=== PATIENT | female | born 1960 | race African-American/Black ===

== ENCOUNTER → 2019-05-31 08:53 | Outpatient (CLI) | payer BC, SELFPAY ==
--- NOTE | ~2019-05-31 | MM_ITS ---
EXAMINATION: MM screening [facility] BI w silva HISTORY: Screening mammogram TECHNIQUE: Craniocaudal and mediolateral oblique 3-D tomosynthesis images were obtained and synthetic 2-D images were generated. CAD analysis was submitted and interpreted. COMPARISON: 08/08/2016, 02/20/2012, 02/13/2011 BREAST PARENCHYMAL COMPOSITION: The breasts are heterogeneously dense, which may obscure small masses . FINDINGS: There is no evidence of suspicious mass, calcification, or architectural distortion to sugg est malignancy in either breast. There has been no suspicious interval change. IMPRESSION: 1. No mammographic evidence of malignancy. 2. Recommend routine screening mammography in one year. BI-RADS Category 1: Negative Reviewed, dictated and finalized at location A.
== END ==
PROVIDERS: PCP Emergency Medicine; Visit Provider Emergency Medicine
DX: Z12.31 Encounter for screening mammogram for malignant neoplasm of breast (principal)
CPT/HCPCS: 77063; 77067

== ENCOUNTER → 2021-04-16 11:30 | Outpatient (CLI) | payer BC, SELFPAY ==
--- NOTE | ~2021-04-16 | MM_ITS ---
EXAMINATION: MM screening [facility] BI w sil[facility] HISTORY: Screening TECHNIQUE: Craniocaudal and mediolateral oblique 3-D tomosynthesis images were obtained and synthetic 2-D images were generated. CAD analysis was submitted and interpreted. COMPARISON: Comparison to multiple prior studies sequentially, with oldest reviewed study dated 02/01. BREAST PARENCHYMAL COMPOSITION: There are scattered areas of fibroglandular density. FINDINGS: There is no evidence of suspicious mass, calcification, or architectural distortion to sugg est malignancy in either breast. There has been no suspicious interval change. IMPRESSION: 1. No mammographic evidence of malignancy. 2. Recommend routine screening mammography in one year. BI-RADS Category 1: Negative Reviewed, dictated and finalized at location A. REPAIRER
== END ==
PROVIDERS: PCP Emergency Medicine; Visit Provider Emergency Medicine
DX: Z12.31 Encounter for screening mammogram for malignant neoplasm of breast (principal)
CPT/HCPCS: 77063; 77067

== ENCOUNTER 2022-10-21 12:01 | Outpatient (CLI) | payer OTHER, SELFPAY ==
--- NOTE | ~2022-10-21 | CT_ITS ---
EXAMINATION: CT thoracic lumbar wo con DATE: 10/21/2022 13:00 INDICATION: Back pain after fall on head at work TECHNIQUE: Computed tomography (CT) of the thoracic and lumbar spine was performed without intravenou s contrast. The dose-length product was 1856.63 mGy-cm. Automated exposure control and iterative amy nstruction technique were employed. COMPARISON: None FINDINGS: Mild thoracic and lumbar spondylosis. Vertebral body heights are maintained. No acute fract ure or traumatic malalignment. Lung parenchyma is unremarkable. There is evidence for chronic granulo matous disease of the thorax. There is an enlarged right thyroid gland containing multiple ill-define d nodules. Consider correlation with thyroid ultrasound. No significant paraspinal soft tissue abnorm ality. There is mild multilevel facet hypertrophy. Normal lumbar lordosis. No significant disc narrow ing of the lumbar spine. No evidence for spondylolisthesis. There is mild annular disc bulging at L4- 5 without significant central canal or neural foraminal stenosis. IMPRESSION: 1. No acute abnormality of the thoracic or lumbar spine. Reviewed, dictated and finalized at location B.
--- NOTE | ~2022-10-21 | CT_ITS ---
EXAMINATION: CT brain wo con INDICATION: Head injury COMPARISON: None TECHNIQUE: Standard unenhanced head CT. The dose-length product (DLP) was 605.33 mGy-cm. The mA was a djusted according to patient size. Iterative reconstruction technique was employed. FINDINGS: No intracranial hemorrhage, acute infarction, or abnormal mass lesion. The ventricles are n ormal. No abnormal mass effect or midline shift. The ames-white matter differentiation is normal. The basal cisterns are patent. The orbits are normal. There is mild mucosal thickening of the paranasal sinuses. IMPRESSION: 1. No acute intracranial abnormality. Reviewed, dictated and finalized at location A.
--- NOTE | ~2022-10-21 | CT_ITS ---
EXAMINATION: CT cervical spine wo con DATE: 10/21/2022 13:00 INDICATION: Head injury TECHNIQUE: Computed tomography (CT) of the cervical spine was performed without intravenous contrast. The dose-length product (DLP) was 516.36 mGy-cm. Automated exposure control and iterative reconstruc tion technique were employed. COMPARISON: None FINDINGS: There is reversal of the normal cervical lordosis. There are 2 mm of anterolisthesis of C3 on C4. The vertebral body heights are maintained. There is moderate loss of intervertebral disc space height at C5-6 and C6-7. There is multilevel severe facet joint osteoarthritis. There is fibrous uni on of the posterior C1 ring. There is nodular enlargement of the right thyroid lobe. IMPRESSION: 1. Moderate cervical spondylosis without acute findings. 2. Right thyroid nodules. Follow-up with nonemergent thyroid ultrasound is recommended for risk strat ification. Reviewed, dictated and finalized at location A. IMPRESSION: 1. Moderate cervical spondylosis without acute findings. 2. Right thyroid nodules. Follow-up with nonemergent thyroid ultrasound is amy mmended for risk stratification.
== END 2022-10-21 12:02 | disposition home or self-care (01) ==
LOC: ANHIMG 12:10
PROVIDERS: PCP Emergency Medicine; Visit Provider Emergency Medicine
DX: S09.90XA Unspecified injury of head, initial encounter (principal); X58.XXXA Exposure to other specified factors, initial encounter; M47.892 Other spondylosis, cervical region; E04.2 Nontoxic multinodular goiter
CPT/HCPCS: 70450; 72125; 72128; 72131

== ENCOUNTER 2022-12-09 08:54 | Outpatient (CLI) | payer OTHER, SELFPAY ==
--- NOTE | ~2022-12-09 | US_ITS ---
EXAMINATION: US thyroid DATE: 12/09/2022 09:26 INDICATION: Nontoxic single thyroid nodule TECHNIQUE: Multiple ultrasound images of the thyroid were obtained. COMPARISON: None. FINDINGS: The right thyroid lobe measures 6.3 x 2.9 x 2.7 cm. The left thyroid lobe measures 4.9 x 1.6 x 1.8 c m. 3.7 x 2.8 x 2.8 cm wider than tall heterogeneous solid isoechoic nodule with smooth to ill-define d margins and without echogenic foci in the mid to inferior right thyroid lobe (TI-RADS 3, mildly ryan picious , FNA if >=2.5 cm, annual followup is >=1.5 cm). 1.8 cm TI RADS 3 left thyroid nodule with si milar imaging features. IMPRESSION: 1. TI-RADS 3 thyroid nodules measuring 3.7 cm on the right and 1.8 cm on the left. Recommend ultrasou nd-guided biopsy of the larger right-sided nodule. Reviewed, dictated and finalized at location A. IMPRESSION: 1. TI-RADS 3 thyroid nodules measuring 3.7 cm on the right and 1.8 cm on the le ft. Recommend ultrasound-guided biopsy of the larger right-sided nodule.
== END 2022-12-09 08:55 | disposition home or self-care (01) ==
PROVIDERS: PCP Emergency Medicine; Visit Provider Emergency Medicine
DX: E04.2 Nontoxic multinodular goiter (principal)
CPT/HCPCS: 76536

== ENCOUNTER → 2022-12-16 13:09 | Outpatient (CLI) | payer OTHER, SELFPAY ==
--- NOTE | ~2022-12-16 | MM_ITS ---
EXAMINATION: MM screening [facility] BI w silva HISTORY: Screening TECHNIQUE: Craniocaudal and mediolateral oblique 3-D tomosynthesis images were obtained and synthetic 2-D images were generated. CAD analysis was submitted and interpreted. COMPARISON: Comparison to multiple prior studies sequentially, with oldest reviewed study dated 10/2016. BREAST PARENCHYMAL COMPOSITION: There are scattered areas of fibroglandular density. FINDINGS: There is no evidence of suspicious mass, calcification, or architectural distortion to sugg est malignancy in either breast. There has been no suspicious interval change. IMPRESSION: 1. No mammographic evidence of malignancy. 2. Recommend routine screening mammography in one year. BI-RADS Category 1: Negative Reviewed, dictated and finalized at location A.
== END ==
PROVIDERS: PCP Emergency Medicine; Visit Provider Emergency Medicine
DX: Z12.31 Encounter for screening mammogram for malignant neoplasm of breast (principal)
CPT/HCPCS: 77063; 77067

== ENCOUNTER 2023-04-22 12:33 | Outpatient (CLI) | payer OTHER, SELFPAY ==
--- NOTE | ~2023-04-22 | US_ITS ---
EXAMINATION: US FNA w image guidance DATE: 04/22/2023 14:01 INDICATION: Nontoxic single right thyroid nodule TECHNIQUE: A time-out was performed to verify the patient's name, date of , and procedure to be performed . The procedure and its benefits and risks were discussed with the patient. Risks specifically discus sed included bleeding and infection. The patient understood the risks and agreed to proceed. The neck was prepped and draped in the usual sterile manner. 4 mL 1% lidocaine was used for local anesthesia . 6 passes were made with a 25G needle into the lesion. Appropriate needle location was documented with continuous sonographic guidance. A sterile bandage was applied. There were no immediate compli cations. FINDINGS: Grayscale ultrasound images demonstrate biopsy needles advanced into a 5.1 cm right thyroid mass. A c oarse shadowing calcification seen within the mass which was not identified on the prior imaging whic h would increase the grade to TI RADS 4 IMPRESSION: 1. Successful ultrasound-guided fine needle aspiration of a 5.1 cm TI RADS 4 right thyroid mass. Reviewed, dictated and finalized at location A. ITY AIDE IMPRESSION: 1. Successful ultrasound-guided fine needle aspiration of a 5.1 cm TI RADS 4 r ight thyroid mass.
== END 2023-04-22 12:34 | disposition home or self-care (01) ==
PROVIDERS: PCP Emergency Medicine; Visit Provider Emergency Medicine
DX: E04.1 Nontoxic single thyroid nodule (principal)
CPT/HCPCS: 10005; 88172; 88173; 88305